=== PATIENT | female | born 1960 | race Caucasian/White ===

== ENCOUNTER 2017-05-13 05:41 | Inpatient (IN) | payer BC ==
[2017-05-10 14:08] VITALS: BMI 29.3
[~2017-05-13] VITALS: Ht 160 cm; Wt 78.0 kg
[2017-05-13] VITALS (24 sets, daily range): BP systolic 103–177; BP diastolic 58–95; PULSE 83–104; RESP 10–19; Ht 160 cm; Wt 78.0 kg
[2017-05-13] MEDS ORDERED: THROMBIN 5000 UNIT VIAL ONE (06:31)
[2017-05-13] MEDS ORDERED: ROPIVACAINE 0.5 % 30 ML VIAL ONE ×2 (06:31→06:57)
[2017-05-13] MEDS ORDERED: POVIDONE IODINE 10% 28.4 GM OINT ONE (06:32)
[2017-05-13] MEDS ORDERED: CA CHLORIDE 10% 10 ML SYRINGE ONE (06:32)
[2017-05-13] MEDS ORDERED: POLYMYXIN/BACITRACIN 1L IRRIG ONE (06:34)
[2017-05-13] MEDS ORDERED: VALS80TA29 PO (06:36)
[2017-05-13] MEDS ORDERED: OMEP40CA6 PO (06:36)
[2017-05-13] MEDS ORDERED: SERT100T PO (06:36)
[2017-05-13] MEDS ORDERED: ARIP10TA13 PO (06:36)
[2017-05-13] MEDS ORDERED: CANCER MED (06:36)
[2017-05-13] MEDS ORDERED: LAMO200T18 PO (06:36)
--- NOTE | 2017-05-13 06:47 | HPN ---
Date/Time of Note Date/Time of Note DATE: 05/13/17 TIME: 06:47 Interval H&P Admission Note Pt. seen H&P reviewed: No system changes ZULEYKA ALDRICH MD May 13, 2017 06:47
[2017-05-13] MEDS ORDERED: MIDAZOLAM 1 MG/ML 2 ML INJ ONE (06:55)
[2017-05-13] MEDS ORDERED: FENTAnyl 50 MCG/ML VIAL ONE (06:55)
[2017-05-13] MEDS ORDERED: CEFAZOLIN 1 GM INJ ONE (07:00)
[2017-05-13] MEDS ORDERED: METOCLOPRAMIDE 10 MG INJ ONE (07:00)
[2017-05-13] MEDS ORDERED: LIDOCAINE 2% (SDV) 5 ML INJ ONE (07:15)
[2017-05-13] MEDS ORDERED: ROCURONIUM 50 MG INJ ONE ×2 (07:16→10:36)
[2017-05-13] MEDS ORDERED: DEXAMETHASONE 4 MG/ML 1 ML INJ ONE (07:16)
[2017-05-13] MEDS ORDERED: SUCCINYLCHOLINE CHLORIDE 100 MG/5 ML SYG IV ONE (07:16)
[2017-05-13] MEDS ORDERED: PROPOFOL 20 ML ONE (07:16)
[2017-05-13] MEDS ORDERED: ONDANSETRON 4 MG INJ ONE (07:16)
[2017-05-13] MEDS ORDERED: FAMOTIDINE 20 MG INJ ONE (07:16)
[2017-05-13] MEDS ORDERED: HEPARIN 1000 UNITS/ML 10 ML INJ ONE (07:20)
[2017-05-13] MEDS ORDERED: PHENYLephrine (100 MCG/ML) 5ML SYG ONE ×3 (07:35→08:38)
[2017-05-13] MEDS ORDERED: GELATIN SIZE 100 SPONGE ONE (08:15)
[2017-05-13] MEDS ORDERED: EPHEDrine SULFATE 50 MG/5 ML SYG ONE (08:17)
[2017-05-13] MEDS ORDERED: GELATIN SIZE 100 SPONGE TOP ONE (08:26)
[2017-05-13] MEDS ORDERED: THROMBIN 5000 UNIT VIAL TOP ONE (08:27)
[2017-05-13] MEDS ORDERED: POLYMYXIN/BACITRACIN 1L IRRIG IRR ONE (08:28)
[2017-05-13] MEDS ORDERED: HYDROmorphONE 2 MG/ML SYG ONE (10:37)
[2017-05-13] MEDS ORDERED: SUGAMMADEX SODIUM 200 MG/2 ML VIAL IV ONE (10:48)
[2017-05-13] MEDS ORDERED: LABETALOL HCL 20MG INJ IV PRN (11:00)
[2017-05-13] MEDS ORDERED: DIPHENHYDRAMINE 50 MG INJ IV PRN (11:00)
[2017-05-13] MEDS ORDERED: PROCHLORPERAZINE 10 MG INJ IV PRN (11:00)
[2017-05-13] MEDS ORDERED: HYDROmorphONE (0.2 MG/ML) 10ML SYG IV PRN ×3 (11:00)
[2017-05-13] MEDS ORDERED: MEPERIDINE 25 MG INJ IV PRN (11:00)
[2017-05-13] MEDS ORDERED: FENTAnyl 50 MCG/ML VIAL IV PRN ×3 (11:00)
[2017-05-13] MEDS ORDERED: hydrALAzine 20 MG INJ IV PRN (11:00)
[2017-05-13] MEDS ORDERED: ONDANSETRON 4 MG INJ IV PRN (11:00)
--- NOTE | 2017-05-13 11:56 | OPPN ---
Date/Time of Note Date/Time of Note DATE: 05/13/17 TIME: 11:51 Operative Report Preoperative Diagnosis Subtalar degenerative joint disease, tibiotalar degenerative joint disease Postoperative Diagnosis same Operation/Procedure Performed Open subtalar arthrodesis, iliac bone graft harvest, tibiotalar osteophyte debridement, allograft augment and Ignite placement, right foot Surgeon see signature line assistant manager trainee Mare Anesthesia: general Estimated blood loss: 10 - 50 ml's Transfusion Required none Specimen none Grafts/Implants Ignite bone augment Complications none ZULEYKA ALDRICH MD May 13, 2017 11:56
[2017-05-13] MEDS ORDERED: BISACODYL 10 MG SUPP PR PRN (12:00)
[2017-05-13] MEDS ORDERED: HYDROmorphONE 0.2 MG/ML PCA IV SCH ×2 (12:00→12:30)
[2017-05-13] MEDS ORDERED: DIPHENHYDRAMINE 25 MG CAP PO PRN (12:00)
[2017-05-13] MEDS ORDERED: CEFAZOLIN 1 GM INJ IV SCH (12:00)
[2017-05-13] MEDS ORDERED: OXYCODONE/ACETAMINOPHEN (5/325) TAB PO PRN (12:00)
--- NOTE | 2017-05-13 13:36 | OPR ---
DATE OF OPERATION: 05/13/2017 PREOPERATIVE DIAGNOSES: 1. Severe degenerative joint disease, right subtalar joint. 2. Degenerative joint disease of the right ankle. POSTOPERATIVE DIAGNOSES: 1. Severe degenerative joint disease, right subtalar joint. 2. Degenerative joint disease, right ankle with osteophytes on the ankle, distal tibia and talar ne ck. SURGERY: 1. Arthrodesis, right subtalar joint with two 7.3 AO cannulated screws. 2. Iliac crest bone graft with the Ignite and augment into the fusion site. 3. Removal of osteophytes, bone spurs and loose bodies from the tibia and talus. 4. Use of fluoroscopy to verify position and alignment of the guide pins and screws. 5. Short-leg cast. SURGEON: Zuleyka Braun MD PARADICHLOROBENZENE MACHINE OPERATOR: Yfn Garvey. ANESTHESIA: General with popliteal block. TOURNIQUET TIME: 125 minutes. DESCRIPTION OF PROCEDURE: The patient taken to the operating room and placed in supine position. S atisfactory general anesthesia was administered after popliteal block had been given 2 grams Ancef g iven intravenously. The entire right lower extremity including the iliac crest were prepped and kylah ped in the usual manner. A sterile tourniquet was applied. Attention then turned to the hip first. Incision was made by pulling the skin up to stay away from the previous incisions along the iliac cr est, dissection carried down to subcutaneous tissue to the fascia. The fascia was split in line wit h its fibers and peeled off the outer and inner crest. Using a saw and then an osteotome, a trap do or was made in the iliac crest. Curettes were used to remove the bone graft from the iliac crest an d we mixed it with bone marrow aspirate that we aspirated with a syringe. Once adequate bone marrow had been obtained, the wound was irrigated with antibiotic solution and the wound was packed with t hrombin-soaked Gelfoam. It was covered sterilely. Gloves were changed. All new instruments were used. Tourniquet inflated to 250 mmHg. Incision was made from the tip of the fibula toward the fourth metatarsal, dissection carried down to subcutaneou s tissue. The subtalar joint was quite narrow and tight. A Novapostermann distraction device was appli ed to facilitate exposure. The cartilage was completely gone and the subtalar joint was quite arthr itic, multiple cysts were seen. Using a curet and rongeur. All the arthritic cartilage was removed from the posterior subtalar joint and sinus tarsi and both the calcaneus and on the articular surfa ce for the talus. A bur was used to remove approximately 1 mm of bone from the top of the calcaneus articular surface and on the tibia. Multiple "spot welds" were made with a bur to facilitate bleed ing. Multiple drill holes were made with 0.062 K-wire. Then, multiple holes were made with an oste otome. After good bleeding surface had been obtained throughout the subtalar region, our attention was then turned to inserting the screws. Incision was made medial to the anterior tibial tendon, dissection carried down to subcutaneous tiss ue. The capsule was opened. There were large osteophytes in the distal tibia which were removed wi th a rongeur and smoothed with a power rasp. A large loose body greater than 1 cm was removed with a grasper. Osteophytes that were quite large along the talar neck were removed with a rongeur and t hen smoothed with a power rasp. After smoothing everything lateral fluoroscopic view showed good re moval of the spurs and loose body. A guide pin was then inserted from the 7.3 AO cannulated screw s et using the vector drill guide. The guide pin was inserted to come out the heel. Incision was mad e in the heel, pin was brought out the heel and then the length of the guide pin was measured retrog rade. The screw hole was drilled partially and an appropriate length 7.3 AO cannulated screw partia lly threaded was inserted. Excellent fixation was obtained. Now prior to inserting the screw and t he guide pin, it should be noted the bone graft was placed in the fusion area. Ignite mixed with bl ood and augment was also placed in the subtalar region until it was nicely filled. The screw was th en inserted which compressed nicely the subtalar region. A second guide pin was placed parallel, sl ightly medial of the other screw, length checked, partially drilled and screw inserted. Excellent f ixation was obtained again. Final fluoroscopic view in the AP and lateral direction showed good pos ition and alignment of the screws. Additional bone graft and Ignite with augment was inserted later ally and packed. The wound was irrigated with antibiotic solution. The capsule medially was closed with a running 2-0 PDS, subcutaneous tissue closed with 3-0 undyed Vicryl and the skin with 4-0 peterson ck nylon. The deep tissues on the lateral wound were closed with 2-0 and 3-0 undyed Vicryl and 4-0 black nylon. Ankle block was done with 0.5% ropivacaine. Iliac crest was irrigated clear. All the thrombin-soaked Gelfoam was removed. Some of the residual Ignite was injected into the hole where the bone graft was obtained. The trap door was closed. Th e fascia was closed with a running 0 PDS, subcutaneous tissue was closed with 2-0 and 3-0 undyed Kayden ryl and the skin with running 3-0 subcuticular Prolene. Steri-Strips were applied as well as compre ssion dressing. Compression dressing was applied on the ankle as well as short-leg cast in neutral position. Intraprocedure sponge and needle count was correct. Patient tolerated procedure well and the cast split in the recovery room. CHANGE CONTROL ANALYST ORTHOPEDIC SURGEON DURING THE PROCEDURE: An assistant program manager orthopedic surgeon was used at my [facility]. The assistant program manager helped with retraction as well as obtaining the bone graft. More importantly the assistant program manager helped drilled the guide pin in the screws while I reduced the subtalar joint in good position. Without a skilled orthopedic surgeon assisting me, this could not have been done, thus s meganuld be compensated appropriately. Dictated By: ZULEYKA LOPEZ/GILBERT Conf#: [id number] DID#: [id number]
[2017-05-13] MEDS ORDERED: VITAMIN A & D 5 GM OINT PACKET TOP ONE (14:10)
[2017-05-13] MEDS: CEFAZOLIN 1 GM/50 ML (PMX) 50 ML IVPB SCH ×2 (14:22→23:33)
[2017-05-13] MEDS: SOD CHLORIDE 0.9% 1,000 ML IV SCH ×2 (14:22→21:56)
--- NOTE | 2017-05-13 14:31 | RADRPT ---
PROCEDURE: Limited right ankle series CLINICAL INDICATION: Pain, arthrodesis TECHNIQUE: A total of 4 spot films are obtained from the C-arm and submitted for review. COMPARISON: None FINDINGS: A total of 4 spot films are obtained from the C-arm and submitted for review. Images demonstrate thr eaded screws stabilizing the talus and calcaneus. Fine detail is limited on the spot films. Fluoroscopy time: 1.0 minutes Number of images/sequences: 4.0 IMPRESSION: Limited spot films as above. RPTAT:AAJJ Physician Chaim Date Time Electronically viewed and signed by Jeffrey Yadav Physician on 05/13/2017 14:31 SENIA/
[2017-05-13] MEDS: HYDROCODONE/APAP (5/325) TAB PO PRN ×2 (16:59→21:11)
[2017-05-13] MEDS ORDERED: HYDROCODONE/APAP (5/325) TAB PO PRN (17:00)
[2017-05-13] MEDS: ONDANSETRON 4 MG INJ IV PRN (19:44)
[2017-05-13] MEDS: morphine 10 MG INJ IV PRN ×2 (19:45→23:42)
[2017-05-13] MEDS: SENNA/DOCUSATE NA (8.6MG/50MG) TAB PO SCH (21:11)
[2017-05-14] MEDS ORDERED: VITAMIN A & D 5 GM OINT PACKET TOP ONE (01:58)
[2017-05-14] MEDS: HYDROCODONE/APAP (5/325) TAB PO PRN ×2 (02:04→08:25)
[2017-05-14] MEDS: morphine 10 MG INJ IV PRN ×2 (06:09→10:13)
[2017-05-14] MEDS: CEFAZOLIN 1 GM/50 ML (PMX) 50 ML IVPB SCH ×3 (06:11→22:30)
[2017-05-14 07:31] VITALS: BP 124/67; RESP 18
[2017-05-14] MEDS: SOD CHLORIDE 0.9% 1,000 ML IV SCH ×3 (07:57→22:30)
[2017-05-14] MEDS: SENNA/DOCUSATE NA (8.6MG/50MG) TAB PO SCH ×2 (08:16→20:56)
[2017-05-14] MEDS ORDERED: DIAZEPAM 5 MG TAB PO PRN (10:00)
[2017-05-14] MEDS ORDERED: ARIPIPRAZOLE 10 MG TAB PO SCH (11:00)
[2017-05-14 11:05] VITALS: BP 112/63; RESP 16
[2017-05-14] MEDS ORDERED: NALOXONE (0.4 MG/ML) INJ IV PRN (12:30)
--- NOTE | 2017-05-14 13:38 | PN ---
Date/Time of Note Date/Time of Note DATE: 05/14/17 TIME: 13:26 Assessment/Plan VTE Prophylaxis VTE Prophylaxis Intervention: contraindicated VTE Contraindication Reason: bleeding Lines/Catheters IV Catheter Type (from Nrsg): Saline Lock Urinary Cath still in place: No Assessment/Plan Chief Complaint/Hosp Course Interval desating after IV morphine and Valium for episode of pain this morning. Patient is normally on CPAP at home. Patient reporting confusion, however, responding appropriately to further questioning. Symptoms improving now after holding narcotics. Problems: Assessment/Plan Assessment: POD#1 right foot subtalar fusion with iliac bone grafting. Interval desat with narcotics/valium, now improving. Plan: 1. Continue to titrate O2 down to room air 2. Place on CPAP 3. Follow up CBC and BMP to r/o electrolyte abnormality/anemia 4. Over wrap plaster cast with fiberglass 5. Hold IV narcotics and valium. Minimize oral narcotics as able 6. NWB RLE 7. PT when able 8. D/C home later today, when stable on room air Subjective 24 Hr Interval Summary Free Text/Dictation Patient with intermittent pain overnight. She feels somewhat anxious this morning. No c/o numbness or tingling at the toes. Tolerating PO without difficulty. Exam/Review of Systems Vital Signs Vitals Vital Signs Date Time Temp Pulse Resp B/P Pulse Ox O2 Delivery O2 Flow Rate FiO2 05/14/17 11:05 97.6 96 16 112/63 93 05/14/17 08:57 Nasal Cannula 2.0 Intake and Output 05/13/17 05/13/17 05/14/17 15:00 23:00 07:00 Intake Total 1600 ml 1700 ml 920 ml Output Total 20 ml Balance 1580 ml 1700 ml 920 ml Exam Gen: NAD, alert and oriented x3 Pulm: breathing non-labored, currently on 3 L O2 CV: no chest pain, RRR MSK: R foot with splint in place. Small area of saturation around the heel. Toes are warm and well perfused. Motor and sensory intact distally. Results Results 24 hrs Laboratory Tests Test 05/14/17 05:46 Lab Scanned Report LAB Medications Medications Current Medications Cefazolin Sodium (Ancef 1 Gm/50 ml (Pmx)) 50 ml @ 100 mls/hr Q8H IVPB Last administered on 05/14/17 06:11; Admin Dose 100 MLS/HR; Start 05/13/17 at 15:00 ; Stop 05/15/17 at 07:29 Senna/Docusate Sodium (Senokot-S) 1 tab BID PO Last administered on 05/14/17 08:16; Admin Dose 1 TAB; Start 05/13/17 at 21:00 Magnesium Hydroxide (Milk Of Mag) 30 ml HS PO ; Start 05/15/17 at 21:00 Bisacodyl 10 mg 10 mg DAILY PRN [place] CONSTIPATION; Start 05/13/17 at 12:00 Sodium Chloride (NS) 1,000 ml @ 100 mls/hr Q10H IV Last administered on 11:36; Admin Dose 100 MLS/HR; Start 05/13/17 at 11:57 Oxycodone/ Acetaminophen (Percocet (5/ 325)) 2 tab Q4H PRN PO PAIN; Start 05/13 at 12:00 Morphine Sulfate (morphine) 5 mg Q4H PRN IV PAIN LEVEL 7-10 Last administered on 05/14/17 10:13; Admin Dose 5 MG; Start 05/13/17 at 12:00; Status Future Hold Ondansetron HCl (Zofran Inj) 4 mg Q4H PRN IV NAUSEA AND/OR VOMITING Last administered on 05/13/17 19:44; Admin Dose 4 MG; Start 05/13/17 at 12:00 Diphenhydramine HCl (Benadryl) 25 mg Q4H PRN PO ITCHING; Start 05/13/17 at 12: 00 Lamotrigine (Lamictal) 200 mg DAILY PO ; Start 05/14/17 at 11:00 Sertraline HCl (Zoloft) 75 mg DAILY PO ; Start 05/14/17 at 11:00 Acetaminophen/ Hydrocodone Bitart ([place] (10/325)) 2 tab Q4H PRN PO PAIN; Start 05/14/17 at 11:00 Aripiprazole (Abilify) 7.5 mg DAILY PO ; Start 05/15/17 at 09:00 Naloxone HCl (Narcan) 0.2 mg Q2M PRN IV DECREASED REPIRATORY RATE; Start at 12:30 ZULEYKA ALDRICH MD May 14, 2017 13:37
[2017-05-14 14:44] VITALS: BP 138/78; PULSE 103; RESP 14
[2017-05-14] MEDS: SERTRALINE 100 MG TAB PO SCH (14:45)
[2017-05-14] MEDS: LAMOTRIGINE 100 MG TAB PO SCH (14:46)
[2017-05-14 15:06] LABS: ABNORMAL IP MESSAGE 1; BASOPHILS % 0.3 % (0.0-2.0); EOSINOPHILS % 0.1 % (0.0-7.0); HEMATOCRIT 36.4 % (37.0-47.0); HEMOGLOBIN 11.3 g/dl (12.0-16.0); LYMPHOCYTES # 0.5 10^3/ul (0.8-2.9); LYMPHOCYTES % 4.2 % (15.0-51.0); MEAN CORPUSCULAR HEMOGLOBIN 31.1 pg (29.0-33.0); MEAN CORPUSCULAR VOLUME 100.3 fl (82.0-101.0); MEAN PLATELET VOLUME 9.3 fl (7.4-10.4); MONOCYTE # 1.2 10^3/ul (0.3-0.9); NEUTROPHILS % 82.9 % (39.0-77.0); PLATELET COUNT 231 10^3/UL (140-415); RED BLOOD COUNT 3.63 10^6/ul (4.20-5.40); RED CELL DISTRIBUTION WIDTH 12.6 % (11.5-14.5); WHITE BLOOD COUNT 10.9 10^3/ul (4.8-10.8)
[2017-05-14 15:08] LABS: POSITIVE DIFF @See below
[2017-05-14 15:28] LABS: CALCIUM 8.8 mg/dl (8.4-10.2); CREATININE 0.85 mg/dl (0.44-1.00); POTASSIUM 4.9 mmol/L (3.5-5.1)
[2017-05-14] MEDS ORDERED: oxyCODONE 5 MG TAB PO PRN (16:30)
[2017-05-14 20:00] VITALS: BP 119/76; RESP 19
[2017-05-14] MEDS: HYDROCODONE/APAP (10/325) TAB PO PRN (21:16)
[2017-05-14 23:38] VITALS: BP 128/68; RESP 19
[2017-05-15] MEDS: HYDROCODONE/APAP (10/325) TAB PO PRN (02:16)
[2017-05-15 04:46] VITALS: BP 148/78; PULSE 85; RESP 17
[2017-05-15] MEDS: CEFAZOLIN 1 GM/50 ML (PMX) 50 ML IVPB SCH (06:35)
--- NOTE | 2017-05-15 06:38 | PN ---
Date/Time of Note Date/Time of Note DATE: 05/15/17 TIME: 06:34 Assessment/Plan VTE Prophylaxis VTE Prophylaxis Intervention: ambulation, SCD's Lines/Catheters IV Catheter Type (from Nrsg): Peripheral IV Urinary Cath still in place: No Assessment/Plan Chief Complaint/Hosp Course Interval desating after IV morphine and Valium for episode of pain this morning. Patient is normally on CPAP at home. Patient reporting confusion, however, responding appropriately to further questioning. Symptoms improving now after holding narcotics. Problems: Assessment/Plan 56 yo F s/p Right open subtalar fusion, patient reports she is feeling well this morning and requesting to go home. We will plan on discharging her home NWB RLE with po pain medications ([place]). Subjective 24 Hr Interval Summary Free Text/Dictation Patient having some pain overnight, but resting comfortably in bed this morning with her eyes closed and right lower extremity elevated on leg elevator. Constitutional: no complaints Exam/Review of Systems Vital Signs Vitals Vital Signs Date Time Temp Pulse Resp B/P Pulse Ox O2 Delivery O2 Flow Rate FiO2 05/15/17 06:23 97 Nasal Cannula 5.0 05/15/17 04:46 97.9 85 17 148/78 05/14/17 17:00 40 Intake and Output 05/14/17 05/14/17 05/15/17 14:59 22:59 06:59 Intake Total 1000 ml 2050 ml 50 ml Balance 1000 ml 2050 ml 50 ml Exam Constitutional: alert Psych: no complaints Additional Comments Right Lower Extremity Exam: Cast in place with no evidence of blood saturation; elevated on leg elevator Patient able to wiggle her toes Patient sensation intact to light touch at her toes distally Toes feel warm and well perfused with Brisk capillary refill Results Result Diagram: 05/14/17 1421 05/14/17 1421 Results 24 hrs Laboratory Tests Test 05/14/17 14:21 White Blood Count 10.9 H Red Blood Count 3.63 L Hemoglobin 11.3 L Hematocrit 36.4 L Mean Corpuscular Volume 100.3 Mean Corpuscular Hemoglobin 31.1 Mean Corpuscular Hemoglobin Concent 31.0 L Red Cell Distribution Width 12.6 Platelet Count 231 Mean Platelet Volume 9.3 Neutrophils % 82.9 H Lymphocytes % 4.2 L Monocytes % 11.0 Eosinophils % 0.1 Basophils % 0.3 Nucleated Red Blood Cells % 0.0 Neutrophils # 9.0 H Lymphocytes # 0.5 L Monocytes # 1.2 H Eosinophils # 0.0 Basophils # 0.0 Nucleated Red Blood Cells # 0.0 Sodium Level 139 Potassium Level 4.9 Chloride Level 99 Carbon Dioxide Level 33 H Anion Gap 12 Blood Urea Nitrogen 10 Creatinine 0.85 Glucose Level 137 Calcium Level 8.8 Medications Medications Current Medications Cefazolin Sodium (Ancef 1 Gm/50 ml (Pmx)) 50 ml @ 100 mls/hr Q8H IVPB Last administered on 05/14/17 22:30; Admin Dose 100 MLS/HR; Start 05/13/17 at 15:00 ; Stop 05/15/17 at 07:29 Senna/Docusate Sodium (Senokot-S) 1 tab BID PO Last administered on 05/14/17 20:56; Admin Dose 1 TAB; Start 05/13/17 at 21:00 Magnesium Hydroxide (Milk Of Mag) 30 ml HS PO ; Start 05/15/17 at 21:00 Bisacodyl 10 mg 10 mg DAILY PRN [place] CONSTIPATION; Start 05/13/17 at 12:00 Sodium Chloride (NS) 1,000 ml @ 100 mls/hr Q10H IV Last administered on 22:30; Admin Dose 100 MLS/HR; Start 05/13/17 at 11:57 Oxycodone/ Acetaminophen (Percocet (5/ 325)) 2 tab Q4H PRN PO PAIN; Start 05/13 at 12:00 Morphine Sulfate (morphine) 5 mg Q4H PRN IV PAIN LEVEL 7-10 Last administered on 05/14/17 10:13; Admin Dose 5 MG; Start 05/13/17 at 12:00; Status Future Hold Ondansetron HCl (Zofran Inj) 4 mg Q4H PRN IV NAUSEA AND/OR VOMITING Last administered on 05/13/17 19:44; Admin Dose 4 MG; Start 05/13/17 at 12:00 Diphenhydramine HCl (Benadryl) 25 mg Q4H PRN PO ITCHING; Start 05/13/17 at 12: 00 Lamotrigine (Lamictal) 200 mg DAILY PO Last administered on 05/14/17 14:46; Admin Dose 200 MG; Start 05/14/17 at 11:00 Sertraline HCl (Zoloft) 75 mg DAILY PO Last administered on 05/14/17 14:45; Admin Dose 75 MG; Start 05/14/17 at 11:00 Acetaminophen/ Hydrocodone Bitart ([place] (10/325)) 2 tab Q4H PRN PO PAIN Last administered on 05/15/17 02:16; Admin Dose 2 TAB; Start 05/14/17 at 11:00 Aripiprazole (Abilify) 7.5 mg DAILY PO ; Start 05/15/17 at 09:00 Naloxone HCl (Narcan) 0.2 mg Q2M PRN IV DECREASED REPIRATORY RATE Last administered on 05/14/17 17:03; Admin Dose 0.2 MG; Start 05/14/17 at 12:30 Oxycodone HCl (Roxicodone) 5 mg Q4H PRN PO PAIN; Start 05/14/17 at 16:30 ZULEYKA ALDRICH MD May 15, 2017 06:38
[2017-05-15] MEDS: ONDANSETRON 4 MG INJ IV PRN (07:06)
[2017-05-15 07:41] VITALS: BP 124/65; RESP 18
[2017-05-15] MEDS: SOD CHLORIDE 0.9% 1,000 ML IV SCH ×2 (09:27→20:59)
[2017-05-15] MEDS: ARIPIPRAZOLE 5 MG TAB PO SCH (09:29)
[2017-05-15] MEDS: LAMOTRIGINE 100 MG TAB PO SCH (09:31)
[2017-05-15] MEDS ORDERED: HYDROCODONE/APAP (5/325) TAB PO PRN ×2 (10:00)
[2017-05-15] MEDS ORDERED: traMADol 50 MG TAB PO PRN (10:00)
[2017-05-15] MEDS: SERTRALINE 100 MG TAB PO SCH (10:44)
[2017-05-15] MEDS: SENNA/DOCUSATE NA (8.6MG/50MG) TAB PO SCH ×2 (10:44→21:00)
[2017-05-15 14:51] VITALS: BP 144/89; RESP 18
[2017-05-15 16:35] LABS: ABNORMAL IP MESSAGE 1; HEMATOCRIT 30.3 % (37.0-47.0); HEMOGLOBIN 9.8 g/dl (12.0-16.0); MEAN CORPUSCULAR HEMOGLOBIN 31.7 pg (29.0-33.0); MEAN CORPUSCULAR HGB CONC 32.3 g/dl (32.0-37.0); MEAN CORPUSCULAR VOLUME 98.1 fl (82.0-101.0); MEAN PLATELET VOLUME 9.6 fl (7.4-10.4); RED BLOOD COUNT 3.09 10^6/ul (4.20-5.40); WHITE BLOOD COUNT 6.1 10^3/ul (4.8-10.8)
[2017-05-15 16:39] LABS: PLATELET COUNT 170 10^3/UL (140-415); POSITIVE DIFF @See below
[2017-05-15 16:54] LABS: CALCIUM 8.4 mg/dl (8.4-10.2); CREATININE 0.63 mg/dl (0.44-1.00); POTASSIUM 4.2 mmol/L (3.5-5.1)
[2017-05-15 17:44] LABS: ANISOCYTOSIS 1+ (0-0); HYPOCHROMASIA 1+ (0-0); MICROCYTOSIS 1+ (0-0); MONOCYTES % (M) 10 % (0-11); PLATELET ESTIMATE NORMAL
[2017-05-15 19:22] VITALS: BP 153/84; RESP 20
[2017-05-15] MEDS ORDERED: MAGNESIUM HYDROXIDE 30ML CUP PO SCH (21:00)
[2017-05-16 00:29] VITALS: BP 154/86; RESP 20
[2017-05-16 02:17] VITALS: BP 169/80; RESP 18
[2017-05-16 03:20] VITALS: BP 153/84; PULSE 88; RESP 18
[2017-05-16] MEDS ORDERED: hydrALAzine 20 MG INJ IV PRN (06:00)
--- NOTE | 2017-05-16 06:42 | PN ---
Date/Time of Note Date/Time of Note DATE: 05/16/17 TIME: 06:31 Assessment/Plan VTE Prophylaxis VTE Prophylaxis Intervention: SCD's Lines/Catheters IV Catheter Type (from Nrs): Peripheral IV Urinary Cath still in place: No Assessment/Plan Chief Complaint/Hosp Course Interval desating after IV morphine and Valium for episode of pain this morning. Patient is normally on CPAP at home. Patient reporting confusion, however, responding appropriately to further questioning. Symptoms improving now after holding narcotics. Problems: Assessment/Plan 56 yo F s/p Right Subtalar Fusion on 05/13/17 now complicated by post-operative confusion. The internal medicine service has been consulted for further work-up of her current state of confusion. We will continue to hold all narcotic pain medications and use Tylenol as needed for pain control. She should continue to elevate her RLE and ice prn. Continue SCD on non-operative leg (LLE). We will have her work with physical therapy today if she is able to follow commands. We will follow-up on her repeat CBC and appreciate all medicine recommendations. Subjective 24 Hr Interval Summary Free Text/Dictation The patient has been confused since yesterday evening and remains confused this morning. Per nursing, she has attempted to get out of bed overnight. When questioned she does not know who the president is, what city she is in, or what hospital she is in. She is not complaining of any pain this morning although all narcotic pain meds have been held given her current state of confusion. The Internal Medicine team was consulted yesterday afternoon and saw her this morning. Constitutional: disoriented Respiratory: no complaints Cardiovascular: no complaints Neurologic: confusion Psychological: confusion Exam/Review of Systems Vital Signs Vitals Vital Signs Date Time Temp Pulse Resp B/P Pulse Ox O2 Delivery O2 Flow Rate FiO2 05/16/17 03:20 88 18 153/84 96 Nasal Cannula 3.0 05/16/17 02:17 98.6 05/15/17 23:47 21 Intake and Output 05/15/17 05/15/17 05/16/17 15:00 23:00 07:00 Intake Total 730 ml 1670 ml 950 ml Output Total 500 ml 600 ml 650 ml Balance 230 ml 1070 ml 300 ml Exam Focused Examination of Right Lower Extremity: Short leg cast in place Patient able to wiggle toes on command Sensation intact to light touch throughout Toes Warm and Well perfused Psych: confusion Results Result Diagram: 05/15/17 1613 05/15/17 1613 Results 24 hrs Laboratory Tests Test 05/15/17 16:13 White Blood Count 6.1 # Red Blood Count 3.09 L Hemoglobin 9.8 L Hematocrit 30.3 L Mean Corpuscular Volume 98.1 Mean Corpuscular Hemoglobin 31.7 Mean Corpuscular Hemoglobin Concent 32.3 Red Cell Distribution Width 12.0 Platelet Count 170 # Mean Platelet Volume 9.6 Segmented Neutrophils % (Manual) 86 H Lymphocytes % (Manual) 4 L Monocytes % (Manual) 10 Nucleated Red Blood Cells % 0.0 Absolute Lymphocytes (Manual) 0.2 L Absolute Monocytes (Manual) 0.6 Platelet Estimate NORMAL Hypochromasia 1+ Anisocytosis 1+ Microcytosis 1+ Sodium Level 137 Potassium Level 4.2 Chloride Level 97 Carbon Dioxide Level 33 H Anion Gap 11 Blood Urea Nitrogen 5 L Creatinine 0.63 Glucose Level 118 Calcium Level 8.4 Medications Medications Current Medications Senna/Docusate Sodium (Senokot-S) 1 tab BID PO Last administered on 05/15/17 10:44; Admin Dose 1 TAB; Start 05/13/17 at 21:00 Magnesium Hydroxide (Milk Of Mag) 30 ml HS PO ; Start 05/15/17 at 21:00 Bisacodyl 10 mg 10 mg DAILY PRN [place] CONSTIPATION; Start 05/13/17 at 12:00 Sodium Chloride (NS) 1,000 ml @ 100 mls/hr Q10H IV Last administered on 20:59; Admin Dose 100 MLS/HR; Start 05/13/17 at 11:57 Morphine Sulfate (morphine) 5 mg Q4H PRN IV PAIN LEVEL 7-10 Last administered on 05/14/17 10:13; Admin Dose 5 MG; Start 05/13/17 at 12:00; Status Future Hold Ondansetron HCl (Zofran Inj) 4 mg Q4H PRN IV NAUSEA AND/OR VOMITING Last administered on 05/15/17 07:06; Admin Dose 4 MG; Start 05/13/17 at 12:00 Diphenhydramine HCl (Benadryl) 25 mg Q4H PRN PO ITCHING; Start 05/13/17 at 12: 00 Lamotrigine (Lamictal) 200 mg DAILY PO Last administered on 05/15/17 09:31; Admin Dose 200 MG; Start 05/14/17 at 11:00 Sertraline HCl (Zoloft) 75 mg DAILY PO Last administered on 05/15/17 10:44; Admin Dose 75 MG; Start 05/14/17 at 11:00 Aripiprazole (Abilify) 7.5 mg DAILY PO Last administered on 05/15/17 09:29; Admin Dose 7.5 MG; Start 05/15/17 at 09:00 Naloxone HCl (Narcan) 0.2 mg Q2M PRN IV DECREASED REPIRATORY RATE Last administered on 05/14/17 17:03; Admin Dose 0.2 MG; Start 05/14/17 at 12:30 Acetaminophen/ Hydrocodone Bitart ([place] (5/325)) 1 tab Q4H PRN PO PAIN LEVEL 1 -5; Start 05/15/17 at 10:00 Acetaminophen/ Hydrocodone Bitart ([place] (5/325)) 2 tab Q4H PRN PO PAIN LEVEL 6 -10; Start 05/15/17 at 10:00 Tramadol HCl (Ultram) 100 mg Q6H PRN PO PAIN; Start 05/15/17 at 10:00 Pantoprazole (Protonix Tab) 40 mg DAILY@06 PO ; Start 05/16/17 at 07:00 Valsartan (Diovan) 80 mg DAILY PO ; Start 05/16/17 at 09:00 Hydralazine HCl (Apresoline) 10 mg Q4H PRN IV SBP > 160; Start 05/16/17 at 06: 00 Acetaminophen (Tylenol Tab) 650 mg Q6H PRN PO PAIN AND OR ELEVATED TEMP; Start 05/16/17 at 06:30; Status ZULEYKA DENNIS MD May 16, 2017 06:42
[2017-05-16] MEDS ORDERED: PANTOPRAZOLE (EC) 40 MG TAB PO SCH (07:00)
[2017-05-16] MEDS: ACETAMINOPHEN 325 MG TAB PO PRN ×2 (07:51→14:23)
--- NOTE | 2017-05-16 08:06 | CONS ---
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 Patient now with forgetfulness/AMS PLAN -As far as her right lower extremity surgery is concerned, she is stable and pain seems to be controlled even though she is not receiving narcotics. As for altered mentation/forgetfulness, her baseline mental status is not known. Will get CT of the head and talk to family member to assess her baseline mentation. -Continue current medications with adjustment as needed -DVT prophylaxis per ortho. Consultation Date/Type/Reason Admit Date/Time May 13, 2017 at 12:07 Hx of Present Illness This is a 56-year-old female with a history of bilateral breast cancer, diagnosed 6 months ago status post mastectomy, hypertension, GERD who was admitted under orthopedic service. Patient has a history of severe right sub talar degenerative joint disease and now underwent arthrodesis and iliac crest bone graft. A consult was placed for medical management. Currently, patient stated that she is feeling well saying that her pain is for the most part controlled. She does however is showing signs of altered mentation. She had her phone next to her and was constantly looking for the same data she had lost her phone. Her nurse also told me that she has been forgetful. Unfortunately patient's baseline mental status is unknown. Social History Smoking Status: Former smoker Exam/Review of Systems Vital Signs Vitals Vital Signs Date Time Temp Pulse Resp B/P Pulse Ox O2 Delivery O2 Flow Rate FiO2 05/16/17 03:20 88 18 153/84 96 Nasal Cannula 3.0 05/16/17 02:17 98.6 05/15/17 23:47 21 Intake and Output 05/15/17 05/15/17 05/16/17 15:00 23:00 07:00 Intake Total 730 ml 1670 ml 950 ml Output Total 500 ml 600 ml 650 ml Balance 230 ml 1070 ml 300 ml Results Result Diagram: 05/15/17 1613 05/15/17 1613 Results 24 hrs Laboratory Tests Test 05/15/17 16:13 White Blood Count 6.1 # Red Blood Count 3.09 L Hemoglobin 9.8 L Hematocrit 30.3 L Mean Corpuscular Volume 98.1 Mean Corpuscular Hemoglobin 31.7 Mean Corpuscular Hemoglobin Concent 32.3 Red Cell Distribution Width 12.0 Platelet Count 170 # Mean Platelet Volume 9.6 Segmented Neutrophils % (Manual) 86 H Lymphocytes % (Manual) 4 L Monocytes % (Manual) 10 Nucleated Red Blood Cells % 0.0 Absolute Lymphocytes (Manual) 0.2 L Absolute Monocytes (Manual) 0.6 Platelet Estimate NORMAL Hypochromasia 1+ Anisocytosis 1+ Microcytosis 1+ Sodium Level 137 Potassium Level 4.2 Chloride Level 97 Carbon Dioxide Level 33 H Anion Gap 11 Blood Urea Nitrogen 5 L Creatinine 0.63 Glucose Level 118 Calcium Level 8.4 Medications Medications Current Medications Senna/Docusate Sodium (Senokot-S) 1 tab BID PO Last administered on 05/15/17 10:44; Admin Dose 1 TAB; Start 05/13/17 at 21:00 Magnesium Hydroxide (Milk Of Mag) 30 ml HS PO ; Start 05/15/17 at 21:00 Bisacodyl 10 mg 10 mg DAILY PRN WI CONSTIPATION; Start 05/13/17 at 12:00 Sodium Chloride (NS) 1,000 ml @ 100 mls/hr Q10H IV Last administered on 20:59; Admin Dose 100 MLS/HR; Start 05/13/17 at 11:57 Morphine Sulfate (morphine) 5 mg Q4H PRN IV PAIN LEVEL 7-10 Last administered on 05/14/17 10:13; Admin Dose 5 MG; Start 05/13/17 at 12:00; Status Future Hold Ondansetron HCl (Zofran Inj) 4 mg Q4H PRN IV NAUSEA AND/OR VOMITING Last administered on 05/15/17 07:06; Admin Dose 4 MG; Start 05/13/17 at 12:00 Diphenhydramine HCl (Benadryl) 25 mg Q4H PRN PO ITCHING; Start 05/13/17 at 12: 00 Lamotrigine (Lamictal) 200 mg DAILY PO Last administered on 05/15/17 09:31; Admin Dose 200 MG; Start 05/14/17 at 11:00 Sertraline HCl (Zoloft) 75 mg DAILY PO Last administered on 05/15/17 10:44; Admin Dose 75 MG; Start 05/14/17 at 11:00 Aripiprazole (Abilify) 7.5 mg DAILY PO Last administered on 05/15/17 09:29; Admin Dose 7.5 MG; Start 05/15/17 at 09:00 Naloxone HCl (Narcan) 0.2 mg Q2M PRN IV DECREASED REPIRATORY RATE Last administered on 05/14/17 17:03; Admin Dose 0.2 MG; Start 05/14/17 at 12:30 Acetaminophen/ Hydrocodone Bitart (Mineral (5/325)) 1 tab Q4H PRN PO PAIN LEVEL 1 -5; Start 05/15/17 at 10:00 Acetaminophen/ Hydrocodone Bitart (Mineral (5/325)) 2 tab Q4H PRN PO PAIN LEVEL 6 -10; Start 05/15/17 at 10:00 Tramadol HCl (Ultram) 100 mg Q6H PRN PO PAIN; Start 05/15/17 at 10:00 Pantoprazole (Protonix Tab) 40 mg DAILY@06 PO ; Start 05/16/17 at 07:00 Valsartan (Diovan) 80 mg DAILY PO ; Start 05/16/17 at 09:00 Hydralazine HCl (Apresoline) 10 mg Q4H PRN IV SBP > 160; Start 05/16/17 at 06: 00 Acetaminophen (Tylenol Tab) 650 mg Q6H PRN PO PAIN AND OR ELEVATED TEMP Last administered on 05/16/17 07:51; Admin Dose 650 MG; Start 05/16/17 at 06:30 MARINE CAPELLAN MD May 16, 2017 08:06
[2017-05-16 08:16] VITALS: BP 151/79; RESP 18
[2017-05-16] MEDS: SENNA/DOCUSATE NA (8.6MG/50MG) TAB PO SCH (08:40)
[2017-05-16] MEDS: SERTRALINE 100 MG TAB PO SCH (08:40)
[2017-05-16] MEDS: ARIPIPRAZOLE 5 MG TAB PO SCH (08:40)
[2017-05-16] MEDS: LAMOTRIGINE 100 MG TAB PO SCH (08:41)
[2017-05-16] MEDS ORDERED: VALSARTAN 80 MG TAB PO SCH (09:00)
--- NOTE | 2017-05-16 09:20 | RADRPT ---
PROCEDURE: CT Brain without contrast. CLINICAL INDICATION: Altered mental status. TECHNIQUE: A CT of the brain was performed on multidetector high-resolution CT scanner utilizing a xial sections from the skull base through the vertex without contrast. The scan was reviewed in sof t tissue brain and high frequency resolution bone algorithm windows. Images were reviewed on a high -resolution PACS workstation. One or more the following does reduction techniques were utilized: Aut omated exposure control, adjustment of the mA/ or kV according to patient's size, or use of iterativ e reconstruction technique. The exam CTDI = 43.21 mGy and the DLP = 844.41 mGy-cm. DICOM images are available. COMPARISON: None available.. FINDINGS: The ventricles and sulci are age-appropriate. There is no intracranial hemorrhage, mass effect or mi dline shift. No abnormal intra-axial or extra-axial fluid collections are seen. The keating/white duyen er differentiation is preserved. Low-lying bilateral cerebellar tonsils are noted with partial effacement of foramen magnum CSF space . There are minimal scattered foci of hypoattenuation in the white matter, which are nonspecific in et iology but likely reflect chronic small vessel ischemic changes. There are minimal intracranial vas cular calcifications consistent with atherosclerosis. The visualized paranasal sinuses are essential ly clear. IMPRESSION: 1. No acute intracranial hemorrhage, transcortical infarction or mass effect. 2. Minimal intracranial atherosclerosis and chronic small vessel ischemic changes. 3. Low-lying bilateral cerebellar tonsils with partial effacement of foramen magnum CSF space RPTAT: HH .Greg Dover MD, MD Date Time Electronically viewed and signed by .Greg Dover MD, MD on 05/16/2017 09:19 .N/
[2017-05-16] MEDS: SOD CHLORIDE 0.9% 1,000 ML IV SCH (09:57)
[2017-05-16 15:00] VITALS: BP 153/89; RESP 18
[2017-05-16 15:42] LABS: ADD UMIC NO; UR ASCORBIC ACID NEGATIVE (NEGATIVE); UR BILIRUBIN (Dip) NEGATIVE (NEGATIVE); UR BLOOD (Dip) NEGATIVE (NEGATIVE); UR CLARITY CLEAR (CLEAR); UR COLOR YELLOW (YELLOW); UR GLUCOSE (Dip) NEGATIVE (NEGATIVE); UR KETONES (Dip) 1+ mg/dL (NEGATIVE); UR LEUKOCYTE ESTERASE (Dip) NEGATIVE Leu/ul (NEGATIVE); UR NITRITE (Dip) NEGATIVE (NEGATIVE); UR SPECIFIC GRAVITY (Dip) 1.014 (1.003-1.030); UR TOTAL PROTEIN (Dip) NEGATIVE (NEGATIVE); UR UROBILINOGEN (Dip) NEGATIVE (NEGATIVE)
== END 2017-05-16 17:26 | disposition home or self-care (01) | DRG 494 ==
LOC: SDS 05:41 → REC 12:07 → SDS 12:07 → MS1 13:40
PROVIDERS: ADMIT Orthopaedic Surgery; ATTEND Orthopaedic Surgery
PROC: 0QB20ZZ Excision of Right Pelvic Bone, Open Approach (ICD-10-PCS; 2017-05-13)
PROC: 0SGF0ZZ (ICD-10-PCS; principal; 2017-05-13 07:00)
DX: M19.071 Primary osteoarthritis, right ankle and foot (principal); I10 Essential (primary) hypertension; Z87.891 Personal history of nicotine dependence; Z85.3 Personal history of malignant neoplasm of breast; Z90.13 Acquired absence of bilateral breasts and nipples; K21.9 Gastro-esophageal reflux disease without esophagitis; E03.9 Hypothyroidism, unspecified
CPT/HCPCS: 70450; 73630; 80048; 81003; 85025; 94660; 97116; 97162; 97530; C1713; J0400; J0690; J1100; J1170; J1644; J2250; J2270; J2310; J2370; J2405; J2765; J2795; J3010; J7030